=== PATIENT | male | born 1960 ===

== ENCOUNTER 2022-04-04 13:07 | Observation (INO) | payer OTHER ==
[2022-04-04] MEDS ORDERED: BABY ASPIRIN 81 MG CHEW PO ONE (13:35)
[2022-04-04] MEDS ORDERED: Zofran 4 MG/2 ML VIAL IV ONE (13:35)
[2022-04-04] MEDS ORDERED: MORPHINE SULFATE 4 MG INJ IV ONE (13:35)
--- NOTE | 2022-04-04 13:44 | ERPHSYRPT ---
- History of Present Illness Time Seen by Provider: 04/04/22 13:25 Historian: patient, EMS Exam Limitations: no limitations Patient Subjective Stated Complaint: PT HERE FOR PAIN TO LEFT SIDE OF CHEST, SINCE THIS AM, TOOK A NITRO AT HOME, NOW CO HEADACHE, HE STATES HE HAD A POSTIVE STRESS TEST AND IS T SEE CARIDOLOGIST Triage Nursing Assessment: PT ARRIVED PER AMBULANCE,RESP EASY, SKIN W./D/P, ABD SOFT, NO EDEMA NOTED Physician History: 61-year-old male presented in the ER with chief complaint of sudden onset substernal/left-sided chest pain with radiation to left arm, moderate intensity, eased up with taking nitro. Reports having similar episodes few weeks ago and had stress test done which is positive. Has upcoming appointment in couple of days with cardiology. Does report having chest pain 3 weeks ago which resolved with 2 nitros. No fever or chills reported. With chest pain was having shortness of breath which is resolved now. Timing/Duration: today, intermittent, resolved prior to arrival, sudden, improved Activities at Onset: rest Quality: sharpness, tightness Location: substernal Chest Pain Radiation: arm Severity of Pain-Max: moderate Severity of Pain-Current: mild Modifying Factors: Improves With: nitroglycerin Associated Symptoms: shortness of breath Prior Chest Pain/Cardiac Workup: stress test Nitro Today/Relief: 0.4 mg x 1 Aspirin Treatment Today: unknown Allergies/Adverse Reactions: No Known Drug Allergies Allergy (Verified 04/04/22 13:12) Home Medications: Aspirin 81 gm Chew [Baby Aspirin 81 mg Chew] 81 mg PO DAILY 04/04/22 [History] Famotidine [Pepcid] 40 mg PO DAILY 04/04/22 [History] Gabapentin 100 mg PO TID 04/04/22 [History] Losartan Potassium 50 mg PO DAILY 04/04/22 [History] Naproxen 500 mg [Naprosyn 500 MG] 500 mg PO BID PRN 04/04/22 [History] Nitroglycerin 0.4 mg Tablet [Nitrostat 0.4 MG Tablet] 0.4 mg SL Q5MIN PRN MR X 3 PRN 04/04/22 [History] Oxybutynin Chloride 5 mg PO DAILY 04/04/22 [History] Simvastatin 10 mg [Zocor 10MG] 10 mg PO DAILY 04/04/22 [History] Tamsulosin HCl 0.4 mg [Flomax 0.4 MG] 0.8 mg PO DAILY 04/04/22 [History] dilTIAZem HCl [Diltiazem 24Hr ER ([place])] 180 mg PO DAILY 04/04/22 [History] hydroCHLOROthiazide [Hydrochlorothiazide] 12.5 mg PO DAILY 04/04/22 [History] Hx Tetanus, Diphtheria Vaccination/Date Given: No Hx Influenza Vaccination/Date Given: No Hx Pneumococcal Vaccination/Date Given: No Immunizations Up to Date: Yes Travel Risk - International Travel Have you traveled outside of the country in past 3 weeks: No - Coronavirus Screening Are you exhibiting any of the following symptoms?: No - Vaccine Status Have you recieved a Covid-19 vaccination: No - Review of Systems Constitutional: No Symptoms Eyes: No Symptoms Ears, Nose, & Throat: No Symptoms Respiratory: Dyspnea Cardiac: Chest Pain Abdominal/Gastrointestinal: No Symptoms Genitourinary Symptoms: No Symptoms Musculoskeletal: No Symptoms Skin: No Symptoms Neurological: Headache Psychological: No Symptoms Endocrine: No Symptoms Hematologic/Lymphatic: No Symptoms Immunological/Allergic: No Symptoms - Past Medical History Pertinent Past Medical History: Yes Musculoskeletal History: Arthritis GI Medical History: GERD Other Medical History: wrong pt - Past Surgical History Past Surgical History: Yes Gastrointestinal: Hernia Repair Musculoskeletal: Orthopedic Surgery Male Surgical History: Testicular Surgery Other Surgical History: FOOT, ELBOW ,TESTICLE REMOVED - Social History Smoking Status: Former smoker Exposure to second hand smoke: No Drug Use: methamphetamines Patient Lives Alone: No - Nursing Vital Signs Nursing Vital Signs: Initial Vital Signs Temperature 97.2 F 04/04/22 13:20 Pulse Rate 60 04/04/22 13:20 Respiratory Rate 20 04/04/22 13:20 Blood Pressure 139/97 04/04/22 13:20 O2 Sat by Pulse Oximetry 96 04/04/22 13:20 Pain Scale Pain Intensity 3 - Physical Exam General Appearance: no apparent distress, alert Eye Exam: PERRL/EOMI Ears, Nose, Throat Exam: normal ENT inspection, pharynx normal Neck Exam: normal inspection, supple, full range of motion Respiratory Exam: normal breath sounds, lungs clear Cardiovascular Exam: regular rate/rhythm, normal heart sounds Back Exam: normal inspection, normal range of motion Extremity Exam: normal inspection, normal range of motion Neurologic Exam: alert, oriented x 3, cooperative Skin Exam: normal color SpO2 Interpretation: normal SpO2: 96 O2 Delivery: Room Air - Course EKG Interpreted by Me: RATE ([id number]), Sinus Gerson, NORMAL AXIS, NORMAL INTERVALS, NORMAL QRS Ordered Tests: Active Orders 24 hr Category Date Time Status Bedrest ROUTINE Activity 04/04/22 18:00 Active Up With Assistance ROUTINE Activity 04/04/22 18:00 Active Medical Device Sales STAT Care 04/04/22 13:35 Completed Code Status Order ROUTINE Care 04/04/22 18:00 Active EKG-ER Only STAT Care 04/04/22 13:35 Completed Fall Protocol Q1H Care 04/04/22 18:00 Active IV Care Q6H Care 04/04/22 18:00 Active IV Insertion STAT Care 04/04/22 13:[address] in Observation ROUTINE Care 04/04/22 18:00 Active Sanket Hose, Apply ROUTINE Care 04/04/22 18:00 Active Weight,Daily 0600 Care 04/04/22 18:00 Active Heart-Healthy Diet Diet 04/04/22 Breakfast Active CHEST 1 VIEW (PORTABLE) Stat Exams 04/04/22 13:35 Taken CBC W DIFF AM.LAB Lab 04/05/22 04:00 Ordered CBC W DIFF Stat Lab 04/04/22 14:11 Completed CK-Creatinine Phosphokinase Stat Lab 04/04/22 14:11 Completed CMP AM.LAB Lab 04/05/22 04:00 Ordered CMP Stat Lab 04/04/22 14:11 Completed D-DIMER QUANTITATIVE Stat Lab 04/04/22 14:11 Completed NT PRO BNP Stat Lab 04/04/22 14:11 Completed TROPONIN Q3H Lab 04/04/22 14:11 Completed TROPONIN Q3H Lab 04/04/22 17:11 Completed TROPONIN Q3H Lab 04/04/22 19:45 Ordered TROPONIN Q3H Lab 04/04/22 22:45 Ordered TROPONIN Q3H Lab 04/05/22 01:45 Ordered Urine Triage Profile Stat Lab 04/04/22 14:11 Completed Oxygen Nasal Cannula 2 lpm RT 04/04/22 18:00 Completed Transfer Order Routine Transfer 04/04/22 Completed Medication Summary Generic Name Dose Route Start Last Admin Trade Name Freq PRN Reason Stop Dose Admin Acetaminophen 650 mg 04/04/22 18:00 Acetaminophen 325 Mg Tablet PO 05/04/22 17:59 Q4H PRN PRN PAIN AND/OR FEVER Enoxaparin Sodium 40 mg 04/05/22 10:00 Enoxaparin Sodium 40 Mg/0.4 Ml Syringe SQ 05/05/22 09:59 DAILY JIMY Gabapentin 100 mg 04/04/22 22:00 Gabapentin 100 Mg Capsule PO 04/04/22 22:01 ONCE ONE Morphine Sulfate 2 mg 04/04/22 18:00 Morphine Sulfate 2 Mg/Ml Inj IV 04/09/22 17:59 Q4H PRN PRN PAIN Nitroglycerin 0.4 mg 04/04/22 19:05 Nitroglycerin 0.4 Mg Tablet Bottle SL 05/04/22 19:04 Q5MIN PRN MR X 3 PRN CHEST PAIN Ondansetron HCl 4 mg 04/04/22 18:00 Ondansetron Hcl 4 Mg/2 Ml Vial IV 05/04/22 17:59 Q6H PRN PRN NAUSEA/VOMITING Pantoprazole Sodium 40 mg 04/05/22 10:00 Pantoprazole 40 Mg Vial IV 05/05/22 09:59 Q24H10 JIMY Discontinued Medications Generic Name Dose Route Start Last Admin Trade Name Freq PRN Reason Stop Dose Admin Acetaminophen Confirm 04/04/22 16:15 Acetaminophen 500 Mg Tablet Administered 04/04/22 16:16 Dose 1,000 mg .ROUTE .STK-MED ONE Acetaminophen 1,000 mg 04/04/22 16:18 04/04/22 16:20 Acetaminophen 500 Mg Tablet PO 04/04/22 16:19 1,000 mg STAT ONE Administration Albuterol/Ipratropium 3 ml 04/04/22 18:00 Ipratropium/Albuterol Sulfate 3 Ml Ampul.Neb IH 05/04/22 17:59 Q4HPRN PRN SHORTNESS OF BREATH/WHEEZING Aspirin 324 mg 04/04/22 13:35 04/04/22 14:06 Aspirin 81 Mg Tab.Chew PO 04/04/22 13:36 324 mg STAT ONE Administration Aspirin Confirm 04/04/22 14:00 Aspirin 81 Mg Tab.Chew Administered 04/04/22 14:01 Dose 324 mg .ROUTE .STK-MED ONE Morphine Sulfate 4 mg 04/04/22 13:35 04/04/22 14:07 Morphine Sulfate 4 Mg/Ml Injection IV 04/04/22 13:36 4 mg STAT ONE Administration Morphine Sulfate Confirm 04/04/22 14:00 Morphine Sulfate 4 Mg/Ml Injection Administered 04/04/22 14:01 Dose 4 mg .ROUTE .STK-MED ONE Ondansetron HCl 4 mg 04/04/22 13:35 04/04/22 14:06 Ondansetron Hcl 4 Mg/2 Ml Vial IV 04/04/22 13:36 4 mg STAT ONE Administration Ondansetron HCl Confirm 04/04/22 14:00 Ondansetron Hcl 4 Mg/2 Ml Vial Administered 04/04/22 14:01 Dose 4 mg .ROUTE .STK-MED ONE Lab/Rad Data: Laboratory Result Diagrams 04/04/22 14:11 04/04/22 14:11 Laboratory Results 04/04/22 04/04/22 04/04/22 Range/Units 17:11 15:55 14:11 WBC (4.0-10.5) x10^3/uL RBC (4.1-5.6) x10^6/uL Hgb (12.5-18.0) g/dL Hct (42-50) % MCV (78-100) fL MCH (26-32) pg MCHC (32-36) g/dL RDW (11.5-14.0) % Plt Count (150-450) x10^3/uL MPV (7.5-11.0) fL Gran % (36.0-66.0) % Immature Gran % (Auto) (0.00-0.4) % Nucleat RBC Rel Count (0.00-0.1) % Eos # (Auto) (0-0.5) x10^3/uL Immature Gran # (Auto) (0.00-0.03) x10^3u/L Absolute Lymphs (auto) (1.0-4.6) x10^3/uL Absolute Monos (auto) (0.0-1.3) x10^3/uL Absolute Nucleated RBC (0.00-0.01) x10^3u/L Lymphocytes % (24.0-44.0) % Monocytes % (0.0-12.0) % Eosinophils % (0.00-5.0) % Basophils % (0.0-0.4) % Absolute Granulocytes (1.4-6.9) x10^3/uL Basophils # (0-0.4) x10^3/uL D-Dimer (0.0-0.50) mg/L Sodium (137-145) mmol/L Potassium (3.5-5.1) mmol/L Chloride (98-107) mmol/L Carbon Dioxide (22-30) mmol/L Anion Gap (5-15) MEQ/L BUN (9-20) mg/dL Creatinine (0.66-1.25) mg/dL Estimated GFR ML/MIN Glucose (74-106) mg/dL Calcium (8.4-10.2) mg/dL Total Bilirubin (0.2-1.3) mg/dL AST (17-59) U/L ALT (0-50) U/L Alkaline Phosphatase (38-126) U/L Creatine Kinase (55-170) U/L Troponin I < 0.012 < 0.012 (0.000-0.034) ng/mL NT-Pro-B Natriuret Pep (0-900) pg/mL Serum Total Protein (6.3-8.2) g/dL Albumin (3.5-5.0) g/dL Urine Opiates Level (NEGATIVE) Ur Methadone (NEGATIVE) Urine Barbiturates (NEGATIVE) Ur Phencyclidine (PCP) (NEGATIVE) Urine Amphetamine (NEGATIVE) U Benzodiazepine Level (NEGATIVE) Urine Cocaine (NEGATIVE) Urine Marijuana (THC) (NEGATIVE) Influenza Type A Ag NEGATIVE (NEGATIVE) Influenza Type B Ag NEGATIVE (NEGATIVE) RSV (PCR) NEGATIVE (Negative) SARS-CoV-2 (PCR) NEGATIVE (NEGATIVE) 04/04/22 04/04/22 04/04/22 Range/Units 14:11 14:11 14:11 WBC 6.7 (4.0-10.5) x10^3/uL RBC 4.07 L (4.1-5.6) x10^6/uL Hgb 13.1 (12.5-18.0) g/dL Hct 38.1 L (42-50) % MCV 93.6 (78-100) fL MCH 32.2 H (26-32) pg MCHC 34.4 (32-36) g/dL RDW 13.0 (11.5-14.0) % Plt Count 107 L (150-450) x10^3/uL MPV 12.6 H (7.5-11.0) fL Gran % 58.1 (36.0-66.0) % Immature Gran % (Auto) 0.1 (0.00-0.4) % Nucleat RBC Rel Count 0.0 (0.00-0.1) % Eos # (Auto) 0.10 (0-0.5) x10^3/uL Immature Gran # (Auto) 0.01 (0.00-0.03) x10^3u/L Absolute Lymphs (auto) 1.97 (1.0-4.6) x10^3/uL Absolute Monos (auto) 0.68 (0.0-1.3) x10^3/uL Absolute Nucleated RBC 0.00 (0.00-0.01) x10^3u/L Lymphocytes % 29.5 (24.0-44.0) % Monocytes % 10.2 (0.0-12.0) % Eosinophils % 1.5 (0.00-5.0) % Basophils % 0.6 (0.0-0.4) % Absolute Granulocytes 3.87 (1.4-6.9) x10^3/uL Basophils # 0.04 (0-0.4) x10^3/uL D-Dimer 0.19 (0.0-0.50) mg/L Sodium 139 (137-145) mmol/L Potassium 3.9 (3.5-5.1) mmol/L Chloride 105 (98-107) mmol/L Carbon Dioxide 24 (22-30) mmol/L Anion Gap 13.5 (5-15) MEQ/L BUN 23 H (9-20) mg/dL Creatinine 1.18 (0.66-1.25) mg/dL Estimated GFR > 60.0 ML/MIN Glucose 96 (74-106) mg/dL Calcium 9.0 (8.4-10.2) mg/dL Total Bilirubin 1.20 (0.2-1.3) mg/dL AST 25 (17-59) U/L ALT 23 (0-50) U/L Alkaline Phosphatase 62 (38-126) U/L Creatine Kinase 94 (55-170) U/L Troponin I (0.000-0.034) ng/mL NT-Pro-B Natriuret Pep 103 (0-900) pg/mL Serum Total Protein 7.7 (6.3-8.2) g/dL Albumin 4.7 (3.5-5.0) g/dL Urine Opiates Level (NEGATIVE) Ur Methadone (NEGATIVE) Urine Barbiturates (NEGATIVE) Ur Phencyclidine (PCP) (NEGATIVE) Urine Amphetamine (NEGATIVE) U Benzodiazepine Level (NEGATIVE) Urine Cocaine (NEGATIVE) Urine Marijuana (THC) (NEGATIVE) Influenza Type A Ag (NEGATIVE) Influenza Type B Ag (NEGATIVE) RSV (PCR) (Negative) SARS-CoV-2 (PCR) (NEGATIVE) 04/04/22 Range/Units 14:11 WBC (4.0-10.5) x10^3/uL RBC (4.1-5.6) x10^6/uL Hgb (12.5-18.0) g/dL Hct (42-50) % MCV (78-100) fL MCH (26-32) pg MCHC (32-36) g/dL RDW (11.5-14.0) % Plt Count (150-450) x10^3/uL MPV (7.5-11.0) fL Gran % (36.0-66.0) % Immature Gran % (Auto) (0.00-0.4) % Nucleat RBC Rel Count (0.00-0.1) % Eos # (Auto) (0-0.5) x10^3/uL Immature Gran # (Auto) (0.00-0.03) x10^3u/L Absolute Lymphs (auto) (1.0-4.6) x10^3/uL Absolute Monos (auto) (0.0-1.3) x10^3/uL Absolute Nucleated RBC (0.00-0.01) x10^3u/L Lymphocytes % (24.0-44.0) % Monocytes % (0.0-12.0) % Eosinophils % (0.00-5.0) % Basophils % (0.0-0.4) % Absolute Granulocytes (1.4-6.9) x10^3/uL Basophils # (0-0.4) x10^3/uL D-Dimer (0.0-0.50) mg/L Sodium (137-145) mmol/L Potassium (3.5-5.1) mmol/L Chloride (98-107) mmol/L Carbon Dioxide (22-30) mmol/L Anion Gap (5-15) MEQ/L BUN (9-20) mg/dL Creatinine (0.66-1.25) mg/dL Estimated GFR ML/MIN Glucose (74-106) mg/dL Calcium (8.4-10.2) mg/dL Total Bilirubin (0.2-1.3) mg/dL AST (17-59) U/L ALT (0-50) U/L Alkaline Phosphatase (38-126) U/L Creatine Kinase (55-170) U/L Troponin I (0.000-0.034) ng/mL NT-Pro-B Natriuret Pep (0-900) pg/mL Serum Total Protein (6.3-8.2) g/dL Albumin (3.5-5.0) g/dL Urine Opiates Level NEGATIVE (NEGATIVE) Ur Methadone NEGATIVE (NEGATIVE) Urine Barbiturates NEGATIVE (NEGATIVE) Ur Phencyclidine (PCP) NEGATIVE (NEGATIVE) Urine Amphetamine NEGATIVE (NEGATIVE) U Benzodiazepine Level NEGATIVE (NEGATIVE) Urine Cocaine NEGATIVE (NEGATIVE) Urine Marijuana (THC) NEGATIVE (NEGATIVE) Influenza Type A Ag (NEGATIVE) Influenza Type B Ag (NEGATIVE) RSV (PCR) (Negative) SARS-CoV-2 (PCR) (NEGATIVE) - Progress Progress: improved Air Movement: good Progress Note: 04/04/22 16:08 61-year-old is evaluated for chest pain which improved with nitro. EKG showed no acute ST elevation and negative initial troponins. No acute findings on chest x-ray reviewed by me, official report is pending. Has negative D-dimers. Patient does have recently abnormal nuclear stress test. Discussed with Dr. Pelayo and patient is being admitted for observation Blood Culture(s) Obtained: No Antibiotics given: No Discussed with : Regi Will see patient in: hospital (observation) Counseled pt/family regarding: lab results, diagnosis, rad results - Departure Departure Disposition: Observation Clinical Impression: Chest pain, rule out acute myocardial infarction Condition: Stable Critical Care Time: No
[2022-04-04] MEDS ORDERED: BABY ASPIRIN 81 MG CHEW ONE (14:00)
[2022-04-04] MEDS ORDERED: MORPHINE SULFATE 4 MG INJ ONE (14:00)
[2022-04-04] MEDS ORDERED: Zofran 4 MG/2 ML VIAL ONE (14:00)
[2022-04-04 14:16] LABS: Absolute Neutrophil Ct (ANC) 3.87 x10^3/uL (1.4-6.9); Basophil (Absolute #) 0.04 x10^3/uL (0-0.4); Eosinophil % 1.5 % (0.00-5.0); Hematocrit 38.1 % (42-50); Hemoglobin 13.1 g/dL (12.5-18.0); Lymphocyte (Absolute #) 1.97 x10^3/uL (1.0-4.6); Lymphocytes % 29.5 % (24.0-44.0); Mean Cell Volume 93.6 fL (78-100); Mean Corpuscular Hemoglobin 32.2 pg (26-32); Mean Corpuscular Hgb Concent. 34.4 g/dL (32-36); Mean Platelet Volume 12.6 fL (7.5-11.0); Monocyte (Absolute #) 0.68 x10^3/uL (0.0-1.3); Monocytes % 10.2 % (0.0-12.0); Neutrophil % 58.1 % (36.0-66.0); Platelet Count 107 x10^3/uL (150-450); Red Blood Count 4.07 x10^6/uL (4.1-5.6); White Blood Count 6.7 x10^3/uL (4.0-10.5)
[2022-04-04 14:33] LABS: ALBUMIN 4.7 g/dL (3.5-5.0); ALKALINE PHOSPHATASE 62 U/L (38-126); ANION GAP 13.5 MEQ/L (5-15); BLOOD UREA NITROGEN 23 mg/dL (9-20); CHLORIDE 105 mmol/L (98-107); CK-Creatinine Phosphokinase 94 U/L (55-170); Carbon Dioxide 24 mmol/L (22-30); Creatinine 1 1.18 mg/dL (0.66-1.25); EST GLOMERULAR FILTRATION RATE > 60.0 ML/MIN; Glucose 96 mg/dL (74-106); NT PRO BNP 103 pg/mL (0-900); Potassium 3.9 mmol/L (3.5-5.1); SGOT/AST 25 U/L (17-59); SGPT/ALT 23 U/L (0-50); SODIUM 139 mmol/L (137-145); Total Protein 7.7 g/dL (6.3-8.2)
[2022-04-04 14:51] LABS: Amphetamine,Urine NEGATIVE (NEGATIVE); Barbiturate,Urine NEGATIVE (NEGATIVE); Benzodiazepine,Urine NEGATIVE (NEGATIVE); Cocaine,Urine NEGATIVE (NEGATIVE); Methadone,Urine NEGATIVE (NEGATIVE); Opiate,Urine NEGATIVE (NEGATIVE); PCP,Urine NEGATIVE (NEGATIVE); THC,Urine NEGATIVE (NEGATIVE)
[2022-04-04] MEDS ORDERED: TYLENOL EXTRA STRENGTH 500 MG ONE (16:15)
[2022-04-04] MEDS ORDERED: TYLENOL EXTRA STRENGTH 500 MG PO ONE (16:18)
[2022-04-04 17:01] LABS: INFLUENZA A NEGATIVE (NEGATIVE); INFLUENZA B NEGATIVE (NEGATIVE); RESPIRATORY SYNCTIAL VIRUS NEGATIVE (Negative); SARS-CoV-2 Xpert Express NEGATIVE (NEGATIVE)
[2022-04-04] MEDS ORDERED: TYLENOL 325 MG PO PRN (18:00)
[2022-04-04] MEDS ORDERED: MORPHINE SULFATE 2 MG INJ IV PRN (18:00)
[2022-04-04] MEDS ORDERED: Zofran 4 MG/2 ML VIAL IV PRN (18:00)
[2022-04-04] MEDS ORDERED: DUONEB 0.5-3 MG/3 ml Neb IH PRN (18:00)
[2022-04-04] MEDS ORDERED: Nitrostat 0.4 MG Tablet SL PRN (19:05)
--- NOTE | 2022-04-04 21:28 | XRAY ---
Indication: Chest pain and short of breath. Comparison: None Portable apical lordotic chest demonstrates normal heart and lungs. Bony thorax intact with minimal degenerative changes.
[2022-04-04] MEDS ORDERED: Neurontin PO ONE (22:00)
[2022-04-05 02:28] LABS: Absolute Neutrophil Ct (ANC) 3.42 x10^3/uL (1.4-6.9); Basophil (Absolute #) 0.03 x10^3/uL (0-0.4); Eosinophil % 3.1 % (0.00-5.0); Eosinophil (Absolute #) 0.21 x10^3/uL (0-0.5); Hematocrit 37.1 % (42-50); Hemoglobin 12.6 g/dL (12.5-18.0); Lymphocytes % 34.4 % (24.0-44.0); Mean Cell Volume 93.9 fL (78-100); Mean Corpuscular Hemoglobin 31.9 pg (26-32); Mean Platelet Volume 12.2 fL (7.5-11.0); Monocyte (Absolute #) 0.72 x10^3/uL (0.0-1.3); Monocytes % 10.8 % (0.0-12.0); Neutrophil % 51.2 % (36.0-66.0); Platelet Count 111 x10^3/uL (150-450); Red Blood Count 3.95 x10^6/uL (4.1-5.6); Red Cell Distribution Width 13.2 % (11.5-14.0); White Blood Count 6.7 x10^3/uL (4.0-10.5)
[2022-04-05 02:52] LABS: ALBUMIN 4.1 g/dL (3.5-5.0); ALKALINE PHOSPHATASE 55 U/L (38-126); BLOOD UREA NITROGEN 22 mg/dL (9-20); CHLORIDE 104 mmol/L (98-107); Calcium 9.1 mg/dL (8.4-10.2); Carbon Dioxide 26 mmol/L (22-30); Creatinine 1 1.23 mg/dL (0.66-1.25); EST GLOMERULAR FILTRATION RATE > 60.0 ML/MIN; Glucose 103 mg/dL (74-106); Potassium 4.1 mmol/L (3.5-5.1); SGOT/AST 21 U/L (17-59); SGPT/ALT 20 U/L (0-50); SODIUM 137 mmol/L (137-145); Total Protein 6.7 g/dL (6.3-8.2)
[2022-04-05] MEDS ORDERED: Nitrostat 0.4 MG Tablet SL PRN (06:59)
[2022-04-05 07:28] VITALS: BP 144/70; PULSE 69; O2SAT 96
[2022-04-05] MEDS ORDERED: TYLENOL EXTRA STRENGTH 500 MG PO PRN (08:30)
[2022-04-05] MEDS ORDERED: ECOTRIN 81 MG PO SCH (10:00)
[2022-04-05] MEDS ORDERED: Flomax 0.4 MG PO SCH (10:00)
[2022-04-05] MEDS ORDERED: DILTIAZEM HCL 180 MG PO SCH (10:00)
[2022-04-05] MEDS ORDERED: Neurontin PO SCH (10:00)
[2022-04-05] MEDS ORDERED: BABY ASPIRIN 81 MG CHEW PO SCH (10:00)
[2022-04-05] MEDS ORDERED: hydroDIURIL 25 MG PO SCH (10:00)
[2022-04-05] MEDS ORDERED: Cardizem CD PO SCH (10:00)
[2022-04-05] MEDS ORDERED: PROTONIX 40 MG IV IV SCH (10:00)
[2022-04-05] MEDS ORDERED: NON-FORMULARY ITEM (Famotidine [Pepcid] 40 MG Tablet) PO SCH (10:00)
[2022-04-05] MEDS ORDERED: Zocor 10MG PO SCH (10:00)
[2022-04-05] MEDS ORDERED: NON-FORMULARY ITEM (Hydrochlorothiazide [Hydrochlorothiazide] 12.5 MG Capsule) PO SCH (10:00)
[2022-04-05] MEDS ORDERED: ENOXAPARIN SODIUM SQ SCH (10:00)
[2022-04-05] MEDS ORDERED: Ditropan 5 MG PO SCH (10:00)
[2022-04-05] MEDS ORDERED: Pepcid 20 MG PO SCH (10:00)
[2022-04-05] MEDS ORDERED: Cozaar 50 MG PO SCH (10:00)
--- NOTE | 2022-04-06 09:36 | SSS ---
DISCHARGE DIAGNOSES: 1) ANGINA CHEST PAIN. 2) KNOWN HISTORY OF CORONARY ARTERY DISEASE. HISTORY: The patient is a 61-year-old white male patient who presented to the emergency room. He had some chest pain. He had taken some Nitro at home which eased up the pain and he presented to the emergency room for further evaluation and management and kept in the hospital for observation for serial troponins to rule out myocardial infarction. The patient reports a previous history of ten years ago having work up done in [place] including a stress treadmill but nothing more was done at that time. He reports that he also had what sounds like a cardiologic stress test which was positive. He had work up pending including seeing his gaming cage cashier tomorrow morning in our office. He also has a follow up with Dr. Drew in his office this coming Tuesday as well. The patient has been pain free since his admission. His troponins have all been negative. PAST MEDICAL/SURGICAL HISTORY: Surgeries of hernia. He had testicular surgery, foot, elbow and he actually had a testicle removed. Arthritis pain and benign prostatic hypertrophy. HOME MEDICATIONS: Aspirin 81 mg a day, diltiazem extended release 180 mg daily, famotidine 40 mg a day, gabapentin 100 mg t.i.d., hydrochlorothiazide 12.5 mg a day, losartan 50 mg a day. Naproxen 500 mg twice a day which he has been instructed to discontinue. Nitro PRN. He takes oxybutynin 5 mg daily, simvastatin 10 mg a day, tamsulosin 0.8 mg daily. ALLERGIES: NKDA. PHYSICAL EXAMINATION: The patient was seen in the emergency room where his vital signs showed a temperature 97.2F, pulse 60, respiratory rate 20 and blood pressure 139/97. O2 saturation 96%. HEENT: Normocephalic, atraumatic. Pupils equal round reactive to light. Extraocular movements intact. Oropharynx is pink and moist. NECK: Supple without lymphadenopathy, thyromegaly or JVD. CHEST: Clear to auscultation. HEART: Regular rate and rhythm without murmurs, rubs or gallops. ABDOMEN: Soft without palpable masses. EXTREMITIES: Without cyanosis, clubbing or edema. NEUROLOGIC: The patient is alert and oriented x3 with no focal deficits. LAB DATA AND TESTS: He had ECG performed in the emergency room that showed what appeared to be borderline left ventricular hypertrophy. He had some T-wave inversions in the lateral leads but no ST segment elevation or depression. He has been in sinus rhythm since his stay. He had troponins done x5 which were all less than 0.012. Metabolic panel was essentially entirely normal. His CBC was essentially normal as well. Chest x-ray was normal. HOSPITAL COURSE: The patient was admitted for observation. Serial troponins have all been negative. The patient was otherwise free of chest pain during his stay and felt to be ready for discharge home again with instructions to take his Nitro up to three times. Should he have recurrent chest pain he is to take five - 81 mg aspirin tablets and present to the emergency room if he had any pain that was not controlled with his nitroglycerin. He has a follow up with his gaming cage cashier tomorrow.
== END 2022-04-05 10:55 | disposition home or self-care (01) ==
LOC: ED 13:07 → MED SURG 17:50
PROVIDERS: ADMIT Family Medicine; ATTEND Family Medicine
DX: R07.9 Chest pain, unspecified (principal); I25.10 Atherosclerotic heart disease of native coronary artery without angina pectoris; Z79.899 Other long term (current) drug therapy; Z20.828 Contact with and (suspected) exposure to other viral communicable diseases
CPT/HCPCS: 0241U; 36000; 36415; 71045; 80053; 80307; 82550; 83880; 84484; 85025; 85379; 93005; 93041; 94760; 96374; 96375; 99285; 93268; J2270; J2405; A9270-GY; G0378

== ENCOUNTER 2022-04-23 03:01 | Observation (INO) | payer OTHER ==
[2022-04-23] MEDS ORDERED: BABY ASPIRIN 81 MG CHEW PO ONE (03:26)
[2022-04-23 03:27] LABS: Absolute Neutrophil Ct (ANC) 7.34 x10^3/uL (1.4-6.9); Basophil (Absolute #) 0.03 x10^3/uL (0-0.4); Eosinophil % 0.3 % (0.00-5.0); Eosinophil (Absolute #) 0.03 x10^3/uL (0-0.5); Hematocrit 36.6 % (42-50); Hemoglobin 12.6 g/dL (12.5-18.0); Lymphocyte (Absolute #) 2.11 x10^3/uL (1.0-4.6); Lymphocytes % 19.7 % (24.0-44.0); Mean Cell Volume 94.6 fL (78-100); Mean Corpuscular Hemoglobin 32.6 pg (26-32); Mean Corpuscular Hgb Concent. 34.4 g/dL (32-36); Mean Platelet Volume 12.5 fL (7.5-11.0); Monocyte (Absolute #) 1.18 x10^3/uL (0.0-1.3); Neutrophil % 68.4 % (36.0-66.0); Platelet Count 143 x10^3/uL (150-450); Red Blood Count 3.87 x10^6/uL (4.1-5.6); Red Cell Distribution Width 13.7 % (11.5-14.0); White Blood Count 10.7 x10^3/uL (4.0-10.5)
--- NOTE | 2022-04-23 03:33 | ERPHSYRPT ---
- History of Present Illness Historian: patient, EMS Exam Limitations: no limitations Patient Subjective Stated Complaint: pt states while doing housework tonight, he became short of breath, diaphoretic and had chest pain radiating to rt arm. Triage Nursing Assessment: pt alert and oriented, answers questions approp. pt arrive per ambulance and ambulates into room without diff. respirations nonlabored with lungs cta. skin warm and dry. heart rate 92 on monitor, sinus r hythm. Physician History: 61 yo wm w h/o HTN/Hyperlipidemia/1ppd tobacco use until 5 yrs ago/hx of cocaine-meth use in the past presents w mid-sternal chest pain wo radiation accompanied by dyspnea/nausea/diaphoresis wo vomiting. Pt took 2 SL NTG before calling the ambulance w decrease in pain from an 8 to a 4. Pain described as an ache. Pt had a stress test on 03/01/22 which he achieved maximum heart rate wo chest pain or EKG changes, but a nuclear spect test that day demonstrated possible ischemic changes. A cardiac cath was recommended which was scheduled for later this month. He was admitted on 04/04/22 for chest pain also. No aspirin was given in route. Timing/Duration: other (2.5 Hr) Activities at Onset: other (Mopping and sweeping) Quality: aching Location: substernal Chest Pain Radiation: no radiation Severity of Pain-Max: severe Severity of Pain-Current: moderate Modifying Factors: Improves With: nitroglycerin Associated Symptoms: nausea, shortness of breath, diaphoresis, No vomiting, No palpitations, No heartburn, No abdominal pain, No cough, No hurts to breathe, No chills, No fever, No fatigue, No weakness, No swelling/lump in chest, No syncope, No rash, No headache, No dizziness, No edema, No back pain Nitro Today/Relief: 0.4 mg x 2, provided at home, mild relief Aspirin Treatment Today: no aspirin today Allergies/Adverse Reactions: No Known Drug Allergies Allergy (Verified 04/23/22 03:19) Home Medications: Aspirin 81 gm Chew [Baby Aspirin 81 mg Chew] 81 mg PO DAILY 04/04/22 [History] Famotidine [Pepcid] 40 mg PO DAILY 04/04/22 [History] Gabapentin 100 mg PO TID 04/04/22 [History] Losartan Potassium 50 mg PO DAILY 04/04/22 [History] Naproxen 500 mg [Naprosyn 500 MG] 500 mg PO BID PRN 04/04/22 [History] Nitroglycerin 0.4 mg Tablet [Nitrostat 0.4 MG Tablet] 0.4 mg SL Q5MIN PRN MR X 3 PRN 04/04/22 [History] Oxybutynin Chloride 5 mg PO DAILY 04/04/22 [History] Simvastatin 10 mg [Zocor 10MG] 10 mg PO DAILY 04/04/22 [History] Tamsulosin HCl 0.4 mg [Flomax 0.4 MG] 0.8 mg PO DAILY 04/04/22 [History] dilTIAZem HCl [Diltiazem 24Hr ER (LA)] 180 mg PO DAILY 04/04/22 [History] hydroCHLOROthiazide [Hydrochlorothiazide] 12.5 mg PO DAILY 04/04/22 [History] Hx Tetanus, Diphtheria Vaccination/Date Given: Yes Hx Influenza Vaccination/Date Given: No Hx Pneumococcal Vaccination/Date Given: No Immunizations Up to Date: Yes Travel Risk - International Travel Have you traveled outside of the country in past 3 weeks: No - Coronavirus Screening Are you exhibiting any of the following symptoms?: No Close contact with a COVID-19 positive Pt in past 14-21 Days: No - Vaccine Status Have you recieved a Covid-19 vaccination: Yes 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 - Vaccination Dates Date of 2cond Vaccination (if applicable): [place] - Review of Systems Constitutional: No Symptoms Eyes: No Symptoms Ears, Nose, & Throat: No Symptoms Respiratory: No Symptoms Cardiac: No Symptoms, Chest Pain Abdominal/Gastrointestinal: No Symptoms, Nausea Genitourinary Symptoms: No Symptoms Musculoskeletal: No Symptoms Skin: No Symptoms Neurological: No Symptoms Psychological: No Symptoms Endocrine: No Symptoms Hematologic/Lymphatic: No Symptoms Immunological/Allergic: No Symptoms - Past Medical History Pertinent Past Medical History: Yes Neurological History: No Pertinent History ENT History: No Pertinent History Cardiac History: Coronary Artery Disease Respiratory History: No Pertinent History Endocrine Medical History: No Pertinent History Musculoskeletal History: Arthritis GI Medical History: GERD Other Medical History: wrong pt - Past Surgical History Past Surgical History: Yes Gastrointestinal: Appendectomy, Hernia Repair Musculoskeletal: Orthopedic Surgery Male Surgical History: Testicular Surgery Other Surgical History: FOOT, ELBOW, bilat shoulder surgery - Social History Smoking Status: Former smoker Exposure to second hand smoke: Yes Drug Use: methamphetamines Patient Lives Alone: No Significant Family History: no pertinent family hx - Nursing Vital Signs Nursing Vital Signs: Initial Vital Signs Temperature 98.0 F 04/23/22 03:04 Pulse Rate 97 H 04/23/22 03:04 Respiratory Rate 16 04/23/22 03:04 Blood Pressure 126/108 04/23/22 03:04 O2 Sat by Pulse Oximetry 99 04/23/22 03:04 Pain Scale Pain Intensity 2 Hypertensive - Physical Exam General Appearance: no apparent distress Eye Exam: PERRL/EOMI, eyes nml inspection Ears, Nose, Throat Exam: normal ENT inspection, TMs normal, pharynx normal, moist mucous membranes Neck Exam: normal inspection, non-tender, supple, full range of motion, No meningismus, No mass, No Brudzinski, No Kernig's Respiratory Exam: normal breath sounds, lungs clear, airway intact, No chest tenderness, No respiratory distress Cardiovascular Exam: regular rate/rhythm, normal heart sounds, normal peripheral pulses, capillary refill <2 sec, No murmur Gastrointestinal/Abdomen Exam: soft, normal bowel sounds Back Exam: normal inspection, normal range of motion, No CVA tenderness, No vertebral tenderness Extremity Exam: normal inspection, normal range of motion Neurologic Exam: alert, oriented x 3, cooperative, polymer scientist II-XII nml as tested, normal mood/affect, nml cerebellar function, nml station & gait, sensation nml, No motor deficits, No sensory deficit Skin Exam: normal color, warm, dry, No rash Lymphatic Exam: No adenopathy SpO2 Interpretation: normal SpO2: 99 O2 Delivery: Room Air - Course Nursing assessment & vital signs reviewed: Yes EKG Interpreted by Me: RATE (NSR/Rate 89/normal QT-QTc/Normal P waves/No acute ST segment changes) - Radiology Exams Chest X-ray Interpretation: Interpreted by me (CXR nad per ER read) Ordered Tests: Active Orders 24 hr Category Date Time Status Bedrest with BRP/BSC ROUTINE Activity 04/23/22 05:34 Ordered Code Status Order ROUTINE Care 04/23/22 05:34 Ordered EKG-ER Only STAT Care 04/23/22 03:06 Active IV Care Q6H Care 04/23/22 05:34 Ordered Implement Chest Pain Pathway ROUTINE Care 04/23/22 05:[address] in Observation ROUTINE Care 04/23/22 05:34 Ordered Sanket MonsivaisMaritza ROUTINE Care 04/23/22 05:34 Ordered Weight,Daily 0600 Care 04/23/22 05:34 Ordered Heart-Healthy Diet Diet 04/23/22 Breakfast Ordered CHEST 1 VIEW (PORTABLE) Stat Exams 04/23/22 03:28 Taken CBC W DIFF Stat Lab 04/23/22 03:20 Completed CMP Stat Lab 04/23/22 03:20 Completed LIPID PROFILE AM.LAB Lab 04/24/22 04:00 Ordered NT PRO BNP Stat Lab 04/23/22 03:20 Completed PROTIME WITH INR Stat Lab 04/23/22 03:20 Completed PTT Stat Lab 04/23/22 03:20 Completed TROPONIN Q3H Lab 04/23/22 03:20 Completed TROPONIN Q3H Lab 04/23/22 04:35 Completed TROPONIN Q3H Lab 04/23/22 09:15 Ordered TROPONIN Q3H Lab 04/23/22 12:15 Ordered TROPONIN Q3H Lab 04/23/22 15:15 Ordered EKG Q8HX2,QAMX3,PRN RT 04/23/22 05:34 Ordered Pulse Oximetry Q4H RT 04/23/22 05:34 Ordered Transfer Order Routine Transfer 04/23/22 Ordered Medication Summary Generic Name Dose Route Start Last Admin Trade Name Freq PRN Reason Stop Dose Admin Acetaminophen 650 mg 04/23/22 05:32 Acetaminophen 325 Mg Tablet PO 05/23/22 05:31 Q4H PRN PRN PAIN AND/OR FEVER Al Hydrox/Mg Hydrox/Simethicone 30 ml 04/23/22 05:32 Mag Hydrox/Al Hydrox/Simeth 30 Ml Udcup PO 05/23/22 05:31 Q4H PRN PRN INDIGESTION Enoxaparin Sodium 40 mg 04/23/22 10:00 Enoxaparin Sodium 40 Mg/0.4 Ml Syringe SQ 05/23/22 09:59 DAILY JIMY Magnesium Hydroxide 30 - 60 ml 04/23/22 05:32 Magnesium Hydroxide 30 Ml Udcup PO 05/23/22 05:31 QDP PRN CONSTIPATION Morphine Sulfate 2 mg 04/23/22 05:32 Morphine Sulfate 2 Mg/Ml Inj IV 04/28/22 05:31 .Q15MIN PRN PRN CHEST PAIN Nitroglycerin 0.4 mg 04/23/22 05:32 Nitroglycerin 0.4 Mg Tablet Bottle SL 05/23/22 05:31 .Q5MIN PRN CHEST PAIN Ondansetron HCl 4 mg 04/23/22 05:32 Ondansetron Hcl 4 Mg/2 Ml Vial IV 05/23/22 05:31 Q4H PRN PRN NAUSEA/VOMITING Senna/Docusate Sodium 2 udtab 04/23/22 05:32 Senna/Docusate Sodium 1 Udtab Tablet PO 05/23/22 05:31 BID PRN PRN CONSTIPATION Discontinued Medications Generic Name Dose Route Start Last Admin Trade Name Elmo PRN Reason Stop Dose Admin Acetaminophen 975 mg 04/23/22 05:30 04/23/22 05:34 Acetaminophen 325 Mg Tablet PO 04/23/22 05:31 975 mg STAT STA Administration Acetaminophen Confirm 04/23/22 05:32 Acetaminophen 325 Mg Tablet Administered 04/23/22 05:33 Dose 975 mg .ROUTE .STK-MED ONE Aspirin 324 mg 04/23/22 03:26 04/23/22 03:44 Aspirin 81 Mg Tab.Chew PO 04/23/22 03:27 324 mg STAT ONE Administration Clonidine 0.2 mg 04/23/22 05:27 04/23/22 05:34 Clonidine Hcl 0.1 Mg Tablet PO 04/23/22 05:28 0.2 mg STAT ONE Administration Clonidine Confirm 04/23/22 05:31 Clonidine Hcl 0.1 Mg Tablet Administered 04/23/22 05:32 Dose 0.1 mg .ROUTE .STK-MED ONE Clonidine Confirm 04/23/22 05:32 Clonidine Hcl 0.1 Mg Tablet Administered 04/23/22 05:33 Dose 0.1 mg .ROUTE .STK-MED ONE Lab/Rad Data: Laboratory Result Diagrams 04/23/22 03:20 04/23/22 03:20 Laboratory Results 04/23/22 04/23/22 04/23/22 Range/Units 04:35 03:20 03:20 WBC (4.0-10.5) x10^3/uL RBC (4.1-5.6) x10^6/uL Hgb (12.5-18.0) g/dL Hct (42-50) % MCV (78-100) fL MCH (26-32) pg MCHC (32-36) g/dL RDW (11.5-14.0) % Plt Count (150-450) x10^3/uL MPV (7.5-11.0) fL Gran % (36.0-66.0) % Immature Gran % (Auto) (0.00-0.4) % Nucleat RBC Rel Count (0.00-0.1) % Eos # (Auto) (0-0.5) x10^3/uL Immature Gran # (Auto) (0.00-0.03) x10^3u/L Absolute Lymphs (auto) (1.0-4.6) x10^3/uL Absolute Monos (auto) (0.0-1.3) x10^3/uL Absolute Nucleated RBC (0.00-0.01) x10^3u/L Lymphocytes % (24.0-44.0) % Monocytes % (0.0-12.0) % Eosinophils % (0.00-5.0) % Basophils % (0.0-0.4) % Absolute Granulocytes (1.4-6.9) x10^3/uL Basophils # (0-0.4) x10^3/uL PT 11.1 (9.4-12.5) SECONDS INR 1.05 (0.8-3.0) APTT 26.5 (25.1-36.5) SECONDS Sodium (137-145) mmol/L Potassium (3.5-5.1) mmol/L Chloride (98-107) mmol/L Carbon Dioxide (22-30) mmol/L Anion Gap (5-15) MEQ/L BUN (9-20) mg/dL Creatinine (0.66-1.25) mg/dL Estimated GFR ML/MIN Glucose (74-106) mg/dL Calcium (8.4-10.2) mg/dL Total Bilirubin (0.2-1.3) mg/dL AST (17-59) U/L ALT (0-50) U/L Alkaline Phosphatase (38-126) U/L Troponin I < 0.012 < 0.012 (0.000-0.034) ng/mL NT-Pro-B Natriuret Pep (0-900) pg/mL Serum Total Protein (6.3-8.2) g/dL Albumin (3.5-5.0) g/dL 04/23/22 04/23/22 Range/Units 03:20 03:20 WBC 10.7 H (4.0-10.5) x10^3/uL RBC 3.87 L (4.1-5.6) x10^6/uL Hgb 12.6 (12.5-18.0) g/dL Hct 36.6 L (42-50) % MCV 94.6 (78-100) fL MCH 32.6 H (26-32) pg MCHC 34.4 (32-36) g/dL RDW 13.7 (11.5-14.0) % Plt Count 143 L (150-450) x10^3/uL MPV 12.5 H (7.5-11.0) fL Gran % 68.4 H (36.0-66.0) % Immature Gran % (Auto) 0.3 (0.00-0.4) % Nucleat RBC Rel Count 0.0 (0.00-0.1) % Eos # (Auto) 0.03 (0-0.5) x10^3/uL Immature Gran # (Auto) 0.03 (0.00-0.03) x10^3u/L Absolute Lymphs (auto) 2.11 (1.0-4.6) x10^3/uL Absolute Monos (auto) 1.18 (0.0-1.3) x10^3/uL Absolute Nucleated RBC 0.00 (0.00-0.01) x10^3u/L Lymphocytes % 19.7 L (24.0-44.0) % Monocytes % 11.0 (0.0-12.0) % Eosinophils % 0.3 (0.00-5.0) % Basophils % 0.3 (0.0-0.4) % Absolute Granulocytes 7.34 H (1.4-6.9) x10^3/uL Basophils # 0.03 (0-0.4) x10^3/uL PT (9.4-12.5) SECONDS INR (0.8-3.0) APTT (25.1-36.5) SECONDS Sodium 140 (137-145) mmol/L Potassium 4.4 (3.5-5.1) mmol/L Chloride 102 (98-107) mmol/L Carbon Dioxide 27 (22-30) mmol/L Anion Gap 15.4 H (5-15) MEQ/L BUN 25 H (9-20) mg/dL Creatinine 1.35 H (0.66-1.25) mg/dL Estimated GFR 57.5 ML/MIN Glucose 104 (74-106) mg/dL Calcium 9.7 (8.4-10.2) mg/dL Total Bilirubin 1.10 (0.2-1.3) mg/dL AST 33 (17-59) U/L ALT 22 (0-50) U/L Alkaline Phosphatase 72 (38-126) U/L Troponin I (0.000-0.034) ng/mL NT-Pro-B Natriuret Pep 188 (0-900) pg/mL Serum Total Protein 8.1 (6.3-8.2) g/dL Albumin 5.0 (3.5-5.0) g/dL - Progress Progress: improved Progress Note: 04/23/22 05:36 ASA 324mg po chewable Clonidine 0.2mg po 04/23/22 05:[address] De León Bridging orders entered Counseled pt/family regarding: lab results, diagnosis, need for follow-up, rad results - Departure Departure Disposition: Observation Clinical Impression: Chest pain Condition: Stable Critical Care Time: No Referrals: RAKEL DE LEÓN MD [Primary Care Provider] - Follow up/PCP as directed Instructions: Chest Pain (DC)
[2022-04-23 03:39] LABS: INR 1.05 (0.8-3.0); PROTIME 11.1 SECONDS (9.4-12.5); PTT 26.5 SECONDS (25.1-36.5)
[2022-04-23 03:46] LABS: ANION GAP 15.4 MEQ/L (5-15); BILIRUBIN,TOTAL 1.1 mg/dL (0.2-1.3); Calcium 9.7 mg/dL (8.4-10.2); Creatinine 1 1.35 mg/dL (0.66-1.25); EST GLOMERULAR FILTRATION RATE 57.5 ML/MIN; Potassium 4.4 mmol/L (3.5-5.1); Total Protein 8.1 g/dL (6.3-8.2)
[2022-04-23] MEDS ORDERED: CLONIDINE 0.1 MG TABLET PO ONE (05:27)
[2022-04-23] MEDS ORDERED: TYLENOL 325 MG PO STA (05:30)
[2022-04-23] MEDS ORDERED: CLONIDINE 0.1 MG TABLET ONE ×2 (05:31→05:32)
[2022-04-23] MEDS ORDERED: Senokot-S Tablet PO PRN (05:32)
[2022-04-23] MEDS ORDERED: MAALOX ES 30 ML UNIT DOSE PO PRN (05:32)
[2022-04-23] MEDS ORDERED: TYLENOL 325 MG ONE (05:32)
[2022-04-23] MEDS ORDERED: MILK OF MAGNESIA 30 ML PO PRN (05:32)
[2022-04-23] MEDS ORDERED: Zofran 4 MG/2 ML VIAL IV PRN (05:32)
[2022-04-23] MEDS ORDERED: Nitrostat 0.4 MG Tablet SL PRN ×2 (05:32→09:13)
[2022-04-23] MEDS ORDERED: MORPHINE SULFATE 2 MG INJ IV PRN (05:32)
[2022-04-23] MEDS ORDERED: ENOXAPARIN SODIUM SQ ONE (05:46)
[2022-04-23 06:31] LABS: INFLUENZA A NEGATIVE (NEGATIVE); INFLUENZA B NEGATIVE (NEGATIVE); RESPIRATORY SYNCTIAL VIRUS NEGATIVE (Negative); SARS-CoV-2 Xpert Express NEGATIVE (NEGATIVE)
[2022-04-23] MEDS ORDERED: Ativan 2 MG/1 ML VIAL IV ONE (06:53)
[2022-04-23] MEDS ORDERED: Ativan 2 MG/1 ML VIAL ONE (06:56)
--- NOTE | 2022-04-23 08:51 | XRAY ---
ONE VIEW CHEST: [AP upright portable one view] COMPARISON: AP upright portable chest film from 04/04/2022. INDICATION: Chest pain. FINDINGS: [The film was obtained in a mildly lordotic projection. The heart size and contour are normal. The sean and mediastinal structures appear unremarkable. The lung negron are well expanded and appear clear. Pulmonary vascularity is normal. No pneumothorax or pleural effusion is seen. The visualized bones appear grossly intact.] IMPRESSION: 1. No acute cardiopulmonary disease is seen, no change from 04/04/2022.
[2022-04-23] MEDS ORDERED: XANAX 1 MG PO PRN ×2 (08:52→10:20)
[2022-04-23] MEDS ORDERED: Naprosyn 500 MG PO PRN (09:13)
[2022-04-23] MEDS ORDERED: ENOXAPARIN SODIUM SQ SCH (10:00)
[2022-04-23] MEDS ORDERED: Cardizem CD PO SCH (10:00)
[2022-04-23] MEDS ORDERED: Cozaar 50 MG PO SCH (10:00)
[2022-04-23] MEDS ORDERED: NON-FORMULARY ITEM (Fexofenadine Hcl [Fexofenadine Hcl] 180 MG Tablet) PO SCH (10:00)
[2022-04-23] MEDS ORDERED: Flovent 110 Mcg MDI IH SCH (10:00)
[2022-04-23] MEDS ORDERED: NON-FORMULARY ITEM (Mv-Mn/Iron/Folic Acid/Herb 190 [Vitamin D3 Complete Caplet] 1 EACH Tab PO SCH (10:00)
[2022-04-23] MEDS: Flonase NASAL NS SCH (10:18)
[2022-04-23] MEDS: Imdur 30 MG PO SCH (10:19)
[2022-04-23] MEDS: Pepcid 20 MG PO SCH (10:19)
[2022-04-23] MEDS: CLARITIN 10 MG PO SCH (10:19)
[2022-04-23] MEDS: hydroDIURIL 25 MG PO SCH (10:19)
[2022-04-23] MEDS: Protonix 40MG Tablet PO SCH (10:20)
[2022-04-23] MEDS: Toprol-Xl 25MG Tablets PO SCH (10:20)
[2022-04-23] MEDS: Flomax 0.4 MG PO SCH (10:20)
[2022-04-23] MEDS: Zocor 10MG PO SCH (10:20)
[2022-04-23] MEDS: Ditropan 5 MG PO SCH (10:21)
[2022-04-23] MEDS: NEURONTIN PO SCH ×3 (10:21→21:28)
[2022-04-23] MEDS: THERAGRAN MULTIVITAMIN PO SCH (10:21)
[2022-04-23 12:47] LABS: Barbiturate,Urine NEGATIVE (NEGATIVE); Benzodiazepine,Urine NEGATIVE (NEGATIVE); Cocaine,Urine NEGATIVE (NEGATIVE); Methadone,Urine NEGATIVE (NEGATIVE); Opiate,Urine NEGATIVE (NEGATIVE); PCP,Urine NEGATIVE (NEGATIVE); THC,Urine POSITIVE (NEGATIVE)
[2022-04-23 14:12] LABS: Amphetamine,Urine POSITIVE (NEGATIVE)
[2022-04-23] MEDS: TYLENOL 325 MG PO PRN (21:28)
[2022-04-24 07:08] LABS: Risk Ratio 3.7
[2022-04-24] MEDS: Flonase NASAL NS SCH (09:58)
[2022-04-24] MEDS ORDERED: ENOXAPARIN SODIUM SQ SCH (10:00)
[2022-04-24] MEDS ORDERED: ECOTRIN 81 MG PO SCH (10:00)
[2022-04-24] MEDS ORDERED: Cardizem CD PO SCH (10:00)
[2022-04-24] MEDS: Flomax 0.4 MG PO SCH (10:01)
[2022-04-24] MEDS: Ditropan 5 MG PO SCH (10:01)
[2022-04-24] MEDS: hydroDIURIL 25 MG PO SCH (10:01)
[2022-04-24] MEDS: NEURONTIN PO SCH ×2 (10:01→15:51)
[2022-04-24] MEDS: Toprol-Xl 25MG Tablets PO SCH (10:01)
[2022-04-24] MEDS: Imdur 30 MG PO SCH (10:01)
[2022-04-24] MEDS: Protonix 40MG Tablet PO SCH (10:01)
[2022-04-24] MEDS: THERAGRAN MULTIVITAMIN PO SCH (10:01)
[2022-04-24] MEDS: Pepcid 20 MG PO SCH (10:01)
[2022-04-24] MEDS: Zocor 10MG PO SCH (10:03)
[2022-04-24] MEDS: CLARITIN 10 MG PO SCH (10:06)
[2022-04-24] MEDS: TYLENOL 325 MG PO PRN (10:10)
[2022-04-24 16:58] VITALS: BP 102/60; PULSE 66; O2SAT 97
--- NOTE | 2022-05-04 19:37 | PCM.SSS ---
History of Present Illness - Chief Complaint Chief Complaint: CHEST PAIN Date: 04/24/22 History of Present Illness: is a 61 year old male. Presented to ER with chest pain and sob and reported diaphoresis. Pt. has appointment to see cardiology in the middle of the month for further evaluation of abnormal stress test a couple of weeks ago. Pt. symptoms resolved and placed in observation for serial cardiac markers. - Review of Systems Constitutional: No Fever, No Chills Eyes: No Symptoms Ears, Nose, & Throat: No Symptoms Respiratory: Short Of Breath, No Cough Cardiac: Chest Pain, No Edema, No Syncope Abdominal/Gastrointestinal: No Abdominal Pain, No Nausea, No Vomiting, No Diarrhea Genitourinary Symptoms: No Dysuria Musculoskeletal: No Back Pain, No Neck Pain Skin: No Rash Neurological: No Dizziness, No Focal Weakness, No Sensory Changes Psychological: No Symptoms Endocrine: No Symptoms Hematologic/Lymphatic: No Symptoms Immunological/Allergic: No Symptoms Medications & Allergies Home Medications: Home Medication List Aspirin 81 gm Chew [Baby Aspirin 81 mg Chew] 81 mg PO DAILY 04/04/22 [History Confirmed 04/23/22] Famotidine [Pepcid] 40 mg PO DAILY 04/04/22 [History Confirmed 04/23/22] Gabapentin 300 mg PO TID 04/04/22 [History Confirmed 04/23/22] Losartan Potassium 50 mg PO DAILY 04/04/22 [History Confirmed 04/23/22] Naproxen 500 mg [Naprosyn 500 MG] 500 mg PO BID PRN 04/04/22 [History Confirmed 04/23/22] Nitroglycerin 0.4 mg Tablet [Nitrostat 0.4 MG Tablet] 0.4 mg SL Q5MIN PRN MR X 3 PRN 04/04/22 [History Confirmed 04/23/22] Oxybutynin Chloride 5 mg PO DAILY 04/04/22 [History Confirmed 04/23/22] Tamsulosin HCl 0.4 mg [Flomax 0.4 MG] 0.8 mg PO DAILY 04/04/22 [History Confirmed 04/23/22] dilTIAZem HCl [Diltiazem 24Hr ER (LA)] 180 mg PO DAILY 04/04/22 [History Confirmed 04/23/22] hydroCHLOROthiazide [Hydrochlorothiazide] 12.5 mg PO DAILY 04/04/22 [History Confirmed 04/23/22] Fexofenadine HCl 180 mg PO DAILY 04/23/22 [History Confirmed 04/23/22] Fluticasone Propionate [Flovent 110 Mcg MDI] 1 spray IH DAILY 04/23/22 [History Confirmed 04/23/22] Isosorbide Mononitrate [Isosorbide Mononitrate ER] 30 mg PO DAILY 04/23/22 [History Confirmed 04/23/22] Metoprolol Succinate 25 mg Xl* [Toprol-Xl 25MG Tablets] 25 mg PO DAILY 04/23/22 [History Confirmed 04/23/22] Mv-Mn/Iron/Folic Acid/Herb 190 [Vitamin D3 Complete Caplet] 1 tablet PO DAILY 04/23/22 [History Confirmed 04/23/22] PANTOPRAZOLE 40 mg Tablet [Protonix 40MG Tablet] 40 mg PO QAM 04/23/22 [History Confirmed 04/23/22] Simvastatin 10 mg [Zocor 10MG] 10 mg PO DAILY 04/23/22 [History Confirmed 04/23/22] Allergies/Adverse Reactions: Allergies Allergy/AdvReac Type Severity Reaction Status Date / Time No Known Drug Allergies Allergy Verified 04/23/22 03:19 - Past Medical History Past Medical History: Yes Neurological History: No Pertinent History ENT History: No Pertinent History Cardiac History: Coronary Artery Disease Respiratory History: No Pertinent History Endocrine Medical History: No Pertinent History Musculoskelatal History: Arthritis GI Medical History: GERD Comment: wrong pt - Past Surgical History Past Surgical History: Yes GI Surgical History: Appendectomy, Hernia Repair Musculskeletal Surgical Hx: Orthopedic Surgery Male Surgical History: Testicular Surgery Other Surgical History: FOOT, ELBOW, bilat shoulder surgery - Social History Smoking Status: Former smoker Exposure to second hand smoke: Yes Alcohol: None Drug Use: methamphetamines Significant Family History: no pertinent family hx - Physical Exam General Appearance: no apparent distress, mild distress (pt. found out his uncle that taught him the proper use of drugs passed earlier this morning.), alert Neurologic Exam: alert, oriented x 3, cooperative, normal mood/affect, nml cerebellar function, nml station & gait, sensation nml, No motor deficits Eye Exam: PERRL/EOMI, eyes nml inspection Ears, Nose, Throat Exam: normal ENT inspection, TMs normal, pharynx normal, moist mucous membranes Neck Exam: normal inspection, non-tender, supple, full range of motion Respiratory Exam: normal breath sounds, lungs clear, No respiratory distress Cardiovascular Exam: regular rate/rhythm, normal heart sounds, normal peripheral pulses Gastrointestinal/Abdomen Exam: soft, normal bowel sounds, No tenderness, No mass Back Exam: normal inspection, normal range of motion, No CVA tenderness, No vertebral tenderness Extremity Exam: normal inspection, normal range of motion, pelvis stable Skin Exam: normal color, warm, dry, No rash Lymphatic Exam: No adenopathy Assessment/Plan (1) Suicidal ideation Status: Acute Code(s): R45.851 - SUICIDAL IDEATIONS (2) Chest pain, rule out acute myocardial infarction Status: Acute Code(s): R07.9 - CHEST PAIN, UNSPECIFIED Hospital Summary - Hospital Course Hospital Course: Pt. cardiac markers were negative, pt. had no further chest pain. Pt. had uds which was positive for methamphetamine and marijuana. Thus violating his probation, knowing he was going to go back to [facility], he began having suicidal thoughts, he was evaluated by [facility] and recommended inpatient psychiatric treatment. Pt. was stable medically and once a bed was found he was safe for discharge to psychiatric facility. - Vitals & Intake/Output Vital Signs: Vital Signs Temperature 97.8 F 04/24/22 16:00 Pulse Rate 66 04/24/22 16:00 Respiratory Rate 16 04/24/22 16:00 Blood Pressure 102/60 04/24/22 16:00 O2 Sat by Pulse Oximetry 97 04/24/22 16:00 - Lab Result Diagrams: 04/23/22 03:20 04/23/22 03:20 - Procedures and Test Procedures and Tests throughout Hospitalization: Therapy Orders & Screens 04/23/22 05:34 EKG Q8HX2,QAMX3,PRN Comment: 04/23/22 11:00 EKG ROUTINE Comment: Diagnosis: CHEST PAIN 04/24/22 05:00 EKG ROUTINE Comment: Diagnosis: CHEST PAIN 04/25/22 05:00 EKG ROUTINE Comment: Diagnosis: CHEST PAIN 04/26/22 05:00 EKG ROUTINE Comment: Diagnosis: CHEST PAIN - Discharge Discharge Date: 04/24/22 Disposition: [facility] Condition: Stable Prescriptions: No Action Aspirin 81 gm Chew [Baby Aspirin 81 mg Chew] 81 mg PO DAILY Losartan Potassium 50 mg PO DAILY Nitroglycerin 0.4 mg Tablet [Nitrostat 0.4 MG Tablet] 0.4 mg SL Q5MIN PRN MR X 3 PRN PRN Reason: Pain Gabapentin 300 mg PO TID Tamsulosin HCl 0.4 mg [Flomax 0.4 MG] 0.8 mg PO DAILY Oxybutynin Chloride 5 mg PO DAILY Naproxen 500 mg [Naprosyn 500 MG] 500 mg PO BID PRN PRN Reason: Pain Famotidine [Pepcid] 40 mg PO DAILY dilTIAZem HCl [Diltiazem 24Hr ER (LA)] 180 mg PO DAILY hydroCHLOROthiazide [Hydrochlorothiazide] 12.5 mg PO DAILY Fexofenadine HCl 180 mg PO DAILY PANTOPRAZOLE 40 mg Tablet [Protonix 40MG Tablet] 40 mg PO QAM Metoprolol Succinate 25 mg Xl* [Toprol-Xl 25MG Tablets] 25 mg PO DAILY Fluticasone Propionate [Flovent 110 Mcg MDI] 1 spray IH DAILY Isosorbide Mononitrate [Isosorbide Mononitrate ER] 30 mg PO DAILY Simvastatin 10 mg [Zocor 10MG] 10 mg PO DAILY Mv-Mn/Iron/Folic Acid/Herb 190 [Vitamin D3 Complete Caplet] 1 tablet PO DAILY Follow up with: RAKEL DE LEÓN MD [Primary Care Provider] -
== END 2022-04-24 19:15 ==
LOC: ED 03:01 → MED SURG 08:06
PROVIDERS: ADMIT Family Medicine; ATTEND Family Medicine
DX: R45.851 Suicidal ideations (principal); R07.9 Chest pain, unspecified; R06.02 Shortness of breath; F41.0 Panic disorder [episodic paroxysmal anxiety]; I25.10 Atherosclerotic heart disease of native coronary artery without angina pectoris; I10 Essential (primary) hypertension; E78.5 Hyperlipidemia, unspecified; F15.90 Other stimulant use, unspecified, uncomplicated; F12.90 Cannabis use, unspecified, uncomplicated; Z79.899 Other long term (current) drug therapy; Z20.828 Contact with and (suspected) exposure to other viral communicable diseases
CPT/HCPCS: 0241U; 36415; 71045; 80053; 80061; 80307; 83721; 83880; 84484; 85025; 85610; 85730; 93005; 93268; 96372; 96374; 99285; G0378; J1650; J2060; J2270; A9270-GY